=== PATIENT | female | born 2000 | race Caucasian/White ===

== ENCOUNTER 2018-09-23 11:26 | Emergency (ER) | payer BC ==
[2018-09-23 12:08] VITALS: BP 122/72
--- NOTE | 2018-09-23 12:21 | UC ---
Respiratory Complaint HPI - HPI Summary HPI Summary: The patient is a 18-year-old female with a one-day history of feeling feverish and having chills. She has a sore throat as well as some nasal congestion and postnasal drip. She does have a mild cough today she started developing myalgias especially in her lower back. She denies any UTI symptoms.. She has no chest pain or shortness of breath. - History of Current Complaint Chief Complaint: UCGeneralIllness Stated Complaint: THROAT AND Time Seen by Provider: 09/23/18 11:56 Hx Obtained From: Patient Hx Last Menstrual Period: two week ago Onset/Duration: Gradual Onset, Lasting Hours Timing: Constant Severity Initially: Mild Severity Currently: Moderate Pain Intensity: 4 Pain Scale Used: 0-10 Numeric Character: Cough: Nonproductive Aggravating Factors: Nothing Associated Signs And Symptoms: Positive: Fever - darío, Chills, Nasal Congestion, Hoarseness - Allergies/Home Medications Allergies/Adverse Reactions: Allergies Allergy/AdvReac Type Severity Reaction Status Date / Time No Known Allergies Allergy Verified 09/23/18 11:55 Home Medications: Home Medications Control Pills 09/23/18 [History] guaiFENesin LIQ* [Robitussin*] 20 ml PO Q4H PRN 09/23/18 [History Confirmed ] PMH/Surg Hx/FS Hx/Imm Hx Previously Healthy: Yes Respiratory History: Asthma - EIA, Pneumonia - x2 - Surgical History Surgical History: None - Family History Known Family History: Positive: Hypertension - Social History Alcohol Use: None Substance Use Type: None Smoking Status (MU): Never Smoked Tobacco - Immunization History Most Recent Tetanus Shot: utd Review of Systems All Other Systems Reviewed And Are Negative: Yes Constitutional: Positive: Fever - darío, Chills, Fatigue Skin: Positive: Negative Eyes: Positive: Negative ENT: Positive: Sore Throat, Nasal Discharge, Sinus Congestion, Sinus Pain/ Tenderness Respiratory: Positive: Cough Cardiovascular: Positive: Negative Gastrointestinal: Positive: Negative Genitourinary: Positive: Negative Motor: Positive: Negative Neurovascular: Positive: Negative Musculoskeletal: Positive: Myalgia Neurological: Positive: Headache Psychological: Positive: Negative Physical Exam Vital Signs: Initial Vital Signs Temp 99.8 F 09/23/18 11:57 Pulse 118 09/23/18 11:57 Resp 24 09/23/18 11:57 BP 122/72 09/23/18 11:57 Pulse Ox 97 09/23/18 11:57 UC Diagnostic Evaluation - Laboratory O2 Sat by Pulse Oximetry: 97 - normal/not hypoxic Diagnostic Studies Comment: influenza (-). strep (-) Respiratory Course/Dx - Differential Dx/Diagnosis Provider Diagnosis: Upper respiratory infection with cough and congestion Discharge - Sign-Out/Discharge Documenting (check all that apply): Patient Departure All imaging exams completed and their final reports reviewed: No Studies - Discharge Plan Condition: Stable Disposition: HOME Patient Education Materials: Upper Respiratory Infection (ED) Forms: *Work Release Referrals: No Primary Care Phys,NOPCP [Primary Care Provider] - Additional Instructions: strep and flu test negative recheck for new or worsening symptoms recheck if not better in 4 days - Billing Disposition and Condition Condition: STABLE Disposition: Home
[2018-09-23 12:31] LABS: Influenza A Molecular NEGATIVE (Negative); Influenza B Molecular NEGATIVE (Negative)
== END 2018-09-23 13:19 | disposition home or self-care (01) ==
LOC: UCEAST 11:26
DX: J06.9 Acute upper respiratory infection, unspecified (principal); R05 Cough; R09.81 Nasal congestion; M54.5 Low back pain; J45.998 Other asthma; Z87.01 Personal history of pneumonia (recurrent)
CPT/HCPCS: 87651; 99201; G0463